=== PATIENT | female | born 2000 | race Caucasian/White ===

== ENCOUNTER 2022-05-30 19:44 | Emergency (ER) | payer OTHER ==
[~2022-05-30] VITALS: Ht 162.6 cm; Wt 60.4 kg
[2022-05-30 21:51] LABS: URINE PREG TEST NEGATIVE (NEGATIVE)
[2022-05-30 22:10] VITALS: BP 130/85
== END 2022-05-30 22:12 | disposition home or self-care (01) ==
LOC: M ED 19:44
DX: N83.291 Other ovarian cyst, right side (principal)

== ENCOUNTER 2022-07-30 09:16 | Emergency (ER) | payer OTHER ==
[~2022-07-30] VITALS: Ht 162.6 cm; Wt 63.4 kg
[2022-07-30 09:17] VITALS: BP 133/81
[2022-07-30] MEDS ORDERED: CEPH500C PO (12:04)
== END 2022-07-30 12:11 | disposition home or self-care (01) ==
LOC: M ED 09:16
DX: L03.116 Cellulitis of left lower limb (principal); Z79.2 Long term (current) use of antibiotics

== ENCOUNTER 2022-08-06 08:09 | Emergency (ER) | payer OTHER ==
[~2022-08-06] VITALS: Ht 162.6 cm; Wt 63.4 kg
[~2022-08-06 08:09] MED LIST: CEPH500C PO
[2022-08-06] MEDS ORDERED: prenatal PO (08:24)
[2022-08-06 09:43] LABS: BASO % 0.4 % (0.0-1.0); EOS % 0.3 % (0.0-3.0); HEMATOCRIT 39.7 % (36.0-47.0); HEMOGLOBIN 13.7 g/dl (12.0-15.5); LYMPH # 2.2 10^3/uL (1.5-5.0); LYMPH % 22.1 % (24.0-44.0); MEAN CORPUSCULAR HEMOGLOBIN 32.5 pg (27.0-33.0); MEAN CORPUSCULAR HGB CONC 34.5 g/dl (32.0-36.5); MEAN CORPUSCULAR VOLUME 94.1 fl (80.0-96.0); MONO # 0.4 10^3/uL (0.0-0.8); MONO % 3.7 % (2.0-8.0); NEUTROPHILS # 7.3 10^3/uL (1.5-8.5); NEUTROPHILS % 73.1 % (36.0-66.0); PLATELET COUNT, AUTOMATED 245 10^3/uL (150-450); RED BLOOD COUNT 4.22 10^6/uL (4.00-5.40); WHITE BLOOD COUNT 9.9 10^3/uL (4.0-10.0)
[2022-08-06 09:55] LABS: APPEARANCE, URINE MANUAL CLEAR (CLEAR); COLOR, URINE MANUAL COLORLESS (YELLOW)
[2022-08-06 09:56] LABS: BILIRUBIN, URINE MANUAL NEGATIVE (NEGATIVE); BLOOD URINE MANUAL NEGATIVE (NEGATIVE); GLUCOSE, URINE (UA) MANUAL NEGATIVE (NEGATIVE); KETONE, URINE MANUAL NEGATIVE (NEGATIVE); LEUKOCYTE ESTERASE, URINE MAN NEGATIVE (NEGATIVE); NITRITE, URINE MANUAL NEGATIVE (NEGATIVE); PROTEIN, URINE MANUAL NEGATIVE (NEGATIVE); SPECIFIC GRAVITY,URINE MANUAL 1.003 (1.002-1.035); UROBILINOGEN, URINE MANUAL NORMAL (NORMAL)
[2022-08-06 10:08] LABS: BLOOD UREA NITROGEN 10 MG/DL (9-23); CARBON DIOXIDE LEVEL 25 MMOL/L (20-31); CHLORIDE LEVEL 102 MMOL/L (98-107); CREATININE FOR GFR 0.68 MG/DL (0.55-1.30); GLUCOSE, FASTING 86 MG/DL (60-100); POTASSIUM SERUM 4.1 MMOL/L (3.5-5.1); SODIUM LEVEL 135 MMOL/L (136-145)
[2022-08-06 10:27] LABS: HCG, SERUM QUANTITATIVE 43476.1 MIU/ML (<4.2)
[2022-08-06 13:19] VITALS: BP 115/69
== END 2022-08-06 13:20 | disposition home or self-care (01) ==
LOC: M ED 08:09
DX: O20.0 Threatened abortion (principal); O34.80 Maternal care for other abnormalities of pelvic organs, unspecified trimester; Z3A.00 Weeks of gestation of pregnancy not specified; Z79.899 Other long term (current) drug therapy

== ENCOUNTER → 2022-08-08 | Outpatient (CLI) | payer OTHER ==
[~2022-08-08] MED LIST changes: +prenatal PO
== END ==
LOC: M LAB 09:39
PROVIDERS: ATTEND Obstetrics & Gynecology
DX: O20.0 Threatened abortion (principal); Z3A.00 Weeks of gestation of pregnancy not specified

== ENCOUNTER 2023-03-31 16:46 | Inpatient (IN) | payer OTHER ==
[~2023-03-31] VITALS: Ht 162.6 cm; Wt 80.4 kg
[2023-03-31] VITALS (10 sets, daily range): BP systolic 99–138; BP diastolic 54–90
[2023-03-31] MEDS ORDERED: HOME MED LIST COMPLETE! XX SCH (17:05)
[2023-03-31] MEDS ORDERED: PENICILLIN G POTASSIUM 5 MU IV 5 MU in D5W MINI-BAG PLUS 100 ML IV STA (17:29)
[2023-03-31] MEDS ORDERED: OXYTOCIN DRIP 30 UNITS in IV 1 EA IV PRN ×4 (17:30)
[2023-03-31] MEDS ORDERED: LR 1,000 ML IV SCH (17:30)
[2023-03-31] MEDS ORDERED: TRANEXAMIC ACID INJection 1,000 MG in NS 100 ML IV PRN (17:30)
[2023-03-31] MEDS ORDERED: METHYLERGONOVINE MALEATE 0.2MG/ML 1ML VIAL IM PRN (17:30)
[2023-03-31] MEDS ORDERED: LIDOCAINE 1% MDV 20ML VIAL INFIL PRN (17:30)
[2023-03-31 18:15] LABS: HEMATOCRIT 34.2 % (36.0-47.0); HEMOGLOBIN 11.4 g/dl (12.0-15.5); MEAN CORPUSCULAR HEMOGLOBIN 31.8 pg (27.0-33.0); MEAN CORPUSCULAR HGB CONC 33.3 g/dl (32.0-36.5); MEAN CORPUSCULAR VOLUME 95.5 fl (80.0-96.0); PLATELET COUNT, AUTOMATED 197 10^3/uL (150-450); RED BLOOD COUNT 3.58 10^6/uL (4.00-5.40)
[2023-03-31] MEDS ORDERED: PEN G POT 3,000,000 UNIT/50 ML 3,000,000 UNIT in IV 1 EA IV SCH (22:00)
[2023-03-31] MEDS ORDERED: EPIDURAL/PCA KEYS XX PRN (22:50)
[2023-03-31] MEDS ORDERED: ONDANSETRON 4MG 2ML VIAL IV PRN (22:50)
[2023-03-31] MEDS ORDERED: FENTANYL/ROPIVACAINE/NACL BAG 100 ML EPIDURAL SCH (22:50)
[2023-03-31] MEDS ORDERED: NALOXONE INJ 0.4MG/1ML VIAL IV PRN (22:50)
[2023-03-31] MEDS ORDERED: LR 500 ML IV PRN (22:50)
[2023-03-31] MEDS ORDERED: diphenhydrAMINE 50MG/ML VIAL IV PRN (22:50)
[2023-04-01] VITALS (31 sets, daily range): BP systolic 92–177; BP diastolic 51–79; O2SAT 98–100
[2023-04-01] MEDS: ePHEDrine SULFATE 25 MG/5 ML(5MG/ML) SYRINGE IVP PRN ×2 (00:32→00:39)
[2023-04-01] MEDS ORDERED: OXYTOCIN DRIP 30 UNITS in IV 1 EA IV SCH ×2 (03:30→05:45)
[2023-04-01 05:25] LABS: CORD GAS ABE V -5.8; CORD GAS HCO3 V 20.4 MMOL/L; CORD GAS O2 SAT V 80.3 %; CORD GAS PCO2 V 42.8 mmHg; CORD GAS PH V 7.297 UNITS; CORD GAS PO2 V 39.7 mmHg; CORD GAS SBC V 19.4 MMOL/L; CORD GAS TCO2 V 21.8 MMOL/L
[2023-04-01 05:27] LABS: CORD GAS ABE A -7.8; CORD GAS HCO3 A 22.8 MMOL/L; CORD GAS O2 SAT A 28.7 %; CORD GAS PCO2 A 69.3 mmHg; CORD GAS PH A 7.136 UNITS; CORD GAS PO2 A 19.1 mmHg; CORD GAS SBC A 16.7 MMOL/L
[2023-04-01] MEDS ORDERED: METOCLOPRAMIDE INJ 10MG/2ML VIAL IV PRN (05:45)
[2023-04-01] MEDS ORDERED: DOCUSATE SODIUM 100MG CAPSULE PO PRN (05:45)
[2023-04-01] MEDS ORDERED: METHYLERGONOVINE MALEATE 0.2MG/ML 1ML VIAL IM PRN (05:45)
[2023-04-01] MEDS ORDERED: ONDANSETRON 4MG 2ML VIAL IV PRN (05:45)
[2023-04-01] MEDS ORDERED: LR 1,000 ML IV SCH (05:45)
[2023-04-01] MEDS ORDERED: RHOGAM 300MCG (1500IU) INJ IM SCH (05:45)
[2023-04-01] MEDS: ACETAMINOPHEN 500 MG TAB PO SCH ×3 (06:10→17:52)
[2023-04-01] MEDS: IBUPROFEN 800 MG TAB PO SCH ×4 (06:11→22:10)
[2023-04-01] MEDS ORDERED: PRENATAL VITAMINS CHEWABLE TABLET PO SCH (09:00)
[2023-04-01] MEDS: PRENATAL VITAMINS CHEWABLE TABLET PO SCH (09:00)
[2023-04-01] MEDS: DIBUCAINE 1% OINTMENT 30GM TOP PRN (18:18)
[2023-04-02] MEDS: ACETAMINOPHEN 500 MG TAB PO SCH ×5 (00:10→23:49)
[2023-04-02 06:00] VITALS: BP 129/69; O2SAT 100
[2023-04-02] MEDS: IBUPROFEN 800 MG TAB PO SCH ×3 (06:01→21:49)
[2023-04-02 07:26] LABS: HEMATOCRIT 23.6 % (36.0-47.0); MEAN CORPUSCULAR HEMOGLOBIN 31.8 pg (27.0-33.0); MEAN CORPUSCULAR HGB CONC 32.2 g/dl (32.0-36.5); MEAN CORPUSCULAR VOLUME 98.7 fl (80.0-96.0); PLATELET COUNT, AUTOMATED 161 10^3/uL (150-450); RED BLOOD COUNT 2.39 10^6/uL (4.00-5.40); WHITE BLOOD COUNT 8.4 10^3/uL (4.0-10.0)
[2023-04-02 07:41] LABS: HEMOGLOBIN 7.6 g/dl (12.0-15.5)
[2023-04-02] MEDS: DOCUSATE SODIUM 100MG CAPSULE PO SCH ×2 (10:25→21:48)
[2023-04-02] MEDS: FERROUS SULFATE 325MG TAB PO SCH ×2 (10:25→21:48)
[2023-04-02] MEDS: PRENATAL VITAMINS CHEWABLE TABLET PO SCH (10:25)
[2023-04-02 18:00] VITALS: BP 118/71
[2023-04-03 06:00] VITALS: BP 124/76; O2SAT 98
[2023-04-03] MEDS: ACETAMINOPHEN 500 MG TAB PO SCH (06:09)
[2023-04-03] MEDS: IBUPROFEN 800 MG TAB PO SCH (06:09)
[2023-04-03] MEDS: DIBUCAINE 1% OINTMENT 30GM TOP PRN (06:13)
[2023-04-03 07:20] LABS: BASO # 0.1 10^3/uL (0.0-0.2); BASO % 0.8 % (0.0-1.0); EOS # 0.1 10^3/uL (0.0-0.5); EOS % 1.2 % (0.0-3.0); HEMATOCRIT 23.4 % (36.0-47.0); HEMOGLOBIN 7.5 g/dl (12.0-15.5); LYMPH # 2.9 10^3/uL (1.5-5.0); LYMPH % 44.6 % (24.0-44.0); MEAN CORPUSCULAR HEMOGLOBIN 32.1 pg (27.0-33.0); MEAN CORPUSCULAR HGB CONC 32.1 g/dl (32.0-36.5); MONO # 0.4 10^3/uL (0.0-0.8); MONO % 5.9 % (2.0-8.0); NEUTROPHILS # 3.1 10^3/uL (1.5-8.5); NEUTROPHILS % 47.2 % (36.0-66.0); PLATELET COUNT, AUTOMATED 154 10^3/uL (150-450); RED BLOOD COUNT 2.34 10^6/uL (4.00-5.40); WHITE BLOOD COUNT 6.5 10^3/uL (4.0-10.0)
[2023-04-03] MEDS: PRENATAL VITAMINS CHEWABLE TABLET PO SCH (08:03)
[2023-04-03] MEDS: FERROUS SULFATE 325MG TAB PO SCH (08:03)
[2023-04-03] MEDS: DOCUSATE SODIUM 100MG CAPSULE PO SCH (08:03)
[2023-04-03] MEDS ORDERED: MEASLES,MUMPS,RUBELLA VACCINE INJ (MMR-II) SC.IMMUN ONE (09:00)
== END 2023-04-03 10:45 | disposition home or self-care (01) | DRG 807 ==
LOC: M LDO 16:46 → M LDI 17:20 → M OBS 04-01 13:00
PROVIDERS: ADMIT Obstetrics & Gynecology; ATTEND Obstetrics & Gynecology
PROC: 10E0XZZ Delivery of Products of Conception, External Approach (ICD-10-PCS; principal; 2023-04-01)
DX: O99.824 Streptococcus B carrier state complicating childbirth (principal); Z37.0 Single live birth; Z3A.39 39 weeks gestation of pregnancy

== ENCOUNTER 2024-01-20 19:23 | Emergency (ER) | payer OTHER ==
[~2024-01-20] VITALS: Ht 165.1 cm; Wt 72.6 kg
[2024-01-20] MEDS ORDERED: LIDOCAINE W/EPINEPHRINE 1% 20ML VIAL SC ONE (20:40)
[2024-01-20 21:25] VITALS: BP 119/68; TEMP 98; O2SAT 100
== END 2024-01-20 21:27 | disposition home or self-care (01) ==
LOC: M ED 19:23
DX: S81.811A Laceration without foreign body, right lower leg, initial encounter (principal); Y92.019 Unspecified place in single-family (private) house as the place of occurrence of the external cause; Y93.9 Activity, unspecified; Y99.9 Unspecified external cause status

== ENCOUNTER 2024-04-28 08:09 | Emergency (ER) | payer OTHER ==
[~2024-04-28] VITALS: Ht 165.1 cm; Wt 68.2 kg
[2024-04-28 09:04] LABS: BASO # 0.1 10^3/uL (0.0-0.2); BASO % 0.9 % (0.0-1.0); EOS # 0.1 10^3/uL (0.0-0.5); HEMATOCRIT 39.1 % (36.0-47.0); LYMPH # 1.9 10^3/uL (1.5-5.0); LYMPH % 27.4 % (24.0-44.0); MEAN CORPUSCULAR HEMOGLOBIN 31.1 pg (27.0-33.0); MEAN CORPUSCULAR HGB CONC 33.2 g/dl (32.0-36.5); MEAN CORPUSCULAR VOLUME 93.5 fl (80.0-96.0); MONO # 0.5 10^3/uL (0.0-0.8); MONO % 6.5 % (2.0-8.0); NEUTROPHILS # 4.5 10^3/uL (1.5-8.5); NEUTROPHILS % 64.1 % (36.0-66.0); PLATELET COUNT, AUTOMATED 238 10^3/uL (150-450); RED BLOOD COUNT 4.18 10^6/uL (4.00-5.40); WHITE BLOOD COUNT 7.1 10^3/uL (4.0-10.0)
[2024-04-28 09:15] VITALS: BP 132/81; TEMP 97.5; O2SAT 100
== END 2024-04-28 10:14 | disposition home or self-care (01) ==
LOC: M ED 08:09
DX: O03.9 Complete or unspecified spontaneous abortion without complication (principal)

== ENCOUNTER 2024-11-29 11:31 | Outpatient (CLI) | payer OTHER ==
[~2024-11-29] VITALS: Ht 167.6 cm; Wt 84.5 kg
[2024-11-29 11:48] VITALS: BP 128/78
== END 2024-11-29 12:37 | disposition home or self-care (01) ==
LOC: M LDO 11:31
PROVIDERS: ATTEND Advanced Practice Midwife
DX: O36.8130 Decreased fetal movements, third trimester, not applicable or unspecified (principal); O26.893 Other specified pregnancy related conditions, third trimester; O09.293 Supervision of pregnancy with other poor reproductive or obstetric history, third trimester; N89.8 Other specified noninflammatory disorders of vagina; Z3A.29 29 weeks gestation of pregnancy
CPT/HCPCS: 59025; 76815; G0463

== ENCOUNTER 2025-02-04 00:38 | Outpatient (CLI) | payer OTHER ==
[~2025-02-04] VITALS: Ht 165.1 cm; Wt 90.1 kg
[2025-02-04 00:54] VITALS: BP 124/69
[2025-02-04 03:08] VITALS: BP 133/83
== END 2025-02-04 03:05 | disposition home or self-care (01) ==
LOC: M LDO 00:38
PROVIDERS: ATTEND Obstetrics & Gynecology
DX: O47.1 False labor at or after 37 completed weeks of gestation (principal); Z3A.39 39 weeks gestation of pregnancy
CPT/HCPCS: 59025; G0463

== ENCOUNTER 2025-02-08 20:09 | Inpatient (IN) | payer OTHER ==
[~2025-02-08] VITALS: Ht 165.1 cm; Wt 90.0 kg
[2025-02-08 21:03] VITALS: BP 120/68
[2025-02-08 21:40] LABS: PLATELET COUNT, AUTOMATED 158 10^3/uL (150-450)
[2025-02-08] MEDS: miSOPROStol 50 MCG 1/2 TABLET SL SCH (22:14)
[2025-02-08 22:15] VITALS: BP 132/79
[2025-02-09] VITALS (62 sets, daily range): BP systolic 84–135; BP diastolic 41–96; O2SAT 98
[2025-02-09 00:29] LABS: HEPATITIS C VIRUS ABY INDEX < 0.02 INDEX (<0.8)
[2025-02-09] MEDS: OXYTOCIN DRIP 30 UNITS in IV 1 EA IV SCH (02:44)
[2025-02-09] MEDS: LR 1,000 ML IV SCH (02:44)
[2025-02-09] MEDS: PRENATAL VITAMINS CHEWABLE TABLET PO SCH (09:00)
[2025-02-09] MEDS ORDERED: METHYLERGONOVINE MALEATE 0.2 MG/ML 1 ML VIAL IM PRN (09:05)
[2025-02-09] MEDS ORDERED: LIDOCAINE 1% MDV 20 ML VIAL INFIL PRN (09:05)
[2025-02-09] MEDS ORDERED: OXYTOCIN INJ 10UNITS/ML 1ML VIAL IM PRN (09:05)
[2025-02-09] MEDS ORDERED: CARBOPROST TROMETHAMINE 250 MCG/ML AMP IM PRN (09:05)
[2025-02-09] MEDS ORDERED: OXYTOCIN DRIP 30 UNITS in IV 1 EA IV PRN (09:05)
[2025-02-09] MEDS ORDERED: EPIDURAL/PCA KEYS XX PRN (09:40)
[2025-02-09] MEDS ORDERED: NALOXONE INJ 0.4 MG/1 ML VIAL IV PRN (09:40)
[2025-02-09] MEDS ORDERED: diphenhydrAMINE 50 MG/ML VIAL IV PRN (09:40)
[2025-02-09 09:52] LABS: HIV 1&2 SCREEN NEGATIVE (NEGATIVE)
[2025-02-09] MEDS: FENTANYL/ROPIVACAINE/NACL BAG 100 ML EPIDURAL SCH (10:16)
[2025-02-09] MEDS: LR 500 ML IV PRN (10:45)
[2025-02-09] MEDS: ONDANSETRON 4MG 2ML VIAL IV PRN (10:56)
[2025-02-09] MEDS ORDERED: PHENYLephrine 500MCG 5ML (100MCG/ML) SYRINGE As Ordered ONE (10:57)
[2025-02-09] MEDS: TRANEXAMIC ACID INJection 1,000 MG in NS 100 ML IV PRN (12:15)
[2025-02-09] MEDS: OXYTOCIN DRIP 30 UNITS in IV 1 EA IV PRN (12:27)
[2025-02-09] MEDS ORDERED: DOCUSATE SODIUM 100 MG CAPSULE PO PRN (13:00)
[2025-02-09] MEDS ORDERED: DIBUCAINE 1% OINTMENT 30 GM TOP PRN (13:00)
[2025-02-09] MEDS ORDERED: METHYLERGONOVINE MALEATE 0.2 MG TAB PO PRN (13:00)
[2025-02-09] MEDS ORDERED: ACETAMINOPHEN 325 MG TAB PO PRN (13:00)
[2025-02-09] MEDS: RHOGAM 300MCG (1500IU) INJ IM SCH (15:14)
[2025-02-09] MEDS: IBUPROFEN 600 MG TAB PO PRN (16:13)
[2025-02-09] MEDS: ACETAMINOPHEN 500 MG TAB PO PRN (21:05)
[2025-02-10] MEDS: IBUPROFEN 800 MG TAB PO PRN (05:09)
[2025-02-10 05:56] VITALS: BP 115/59; O2SAT 97
[2025-02-11] MEDS ORDERED: MEASLES,MUMPS,RUBELLA VACCINE INJ (MMR-II) SC.IMMUN ONE (09:00)
== END 2025-02-10 16:30 | disposition home or self-care (01) | DRG 807 ==
LOC: M LDI 20:09 → M OBS 02-09 15:30
PROVIDERS: ADMIT Specialist; ATTEND Advanced Practice Midwife
PROC: 3E0P7GC Introduction of Other Therapeutic Substance into Female Reproductive, Via Natural or Artificial Opening (ICD-10-PCS; 2025-02-08)
PROC: 10E0XZZ Delivery of Products of Conception, External Approach (ICD-10-PCS; principal; 2025-02-09)
PROC: 10907ZC Drainage of Amniotic Fluid, Therapeutic from Products of Conception, Via Natural or Artificial Opening (ICD-10-PCS; 2025-02-09)
DX: O66.0 Obstructed labor due to shoulder dystocia (principal); Z37.0 Single live birth; Z3A.39 39 weeks gestation of pregnancy